=== PATIENT | female | born 1980 | race American Indian/Alaskan Native ===

== ENCOUNTER 2017-04-05 12:04 | Outpatient (CLI) | payer OTHER ==
--- NOTE | 2017-04-05 14:15 | Mammography Report ---
BILATERAL DIGITAL SCREENING MAMMOGRAM with CAD: 04/05/17 12:04:00 CLINICAL: Routine screening. COMPARISON:09/30/15 and 12/17/15 right mammogram FINDINGS: The breasts are heterogeneously dense, which may obscures small masses. The previously described right upper outer parenchyma laced symmetry is more prominent than on prior exams and requires additional imaging.No architectural distortion or suspicious calcifications.The left breast is negative. IMPRESSION: Right asymmetry requiring further workup. BI-RADS CATEGORY: 0 -- Additional Imaging Evaluation Required RECOMMENDATION: Recall for right , spot compression CC and MLO views and right breast ultrasound. ACR BI-RADS MAMMOGRAPHIC CODES: 0 = Needs additional imaging evaluation; 1 = Negative; 2 = Benign; 3 = Probably benign; 4 = Suspicious; 5 = Malignant; 6 = Known biopsy-proven malignancy COMMENT: 1. Dense breast tissue, i.e., adenosis, fibrocystic changes, etc., may obscure an underlying neoplasm. 2. Approximately 10% of cancers are not detected with mammography. 3. A negative mammography report should not delay biopsy if a clinically suspicious mass is present. COMMENT: Patient follow-up letters are generated via our [employer] application.
== END 2017-04-05 12:05 | disposition home or self-care (01) ==
LOC: SPVWC 12:04
PROVIDERS: ATTEND Family Medicine
DX: Z12.31 Encounter for screening mammogram for malignant neoplasm of breast (principal)
CPT/HCPCS: 77067; G0202

== ENCOUNTER 2017-04-13 08:29 | Outpatient (CLI) | payer OTHER ==
--- NOTE | 2017-04-13 09:16 | Mammography Report ---
Spot compression magnification view and sonogram of density upper outer right breast: Findings: There is persistence of density noted in Spot compression magnification view were no distinct mass or microcalcification is seen. On sonographic examination no cystic or solid masses identified. Impression: Benign findings. Annual followup recommended. BI-RADS CATEGORY: 2 = Benign ACR BI-RADS MAMMOGRAPHIC CODES: 0 = Needs additional imaging evaluation; 1 = Negative; 2 = Benign; 3 = Probably benign; 4 = Suspicious; 5 = Malignant; 6 = Known biopsy-proven malignancy COMMENT: 1. Dense breast tissue, i.e., adenosis, fibrocystic changes, etc., may obscure an underlying neoplasm. 2. Approximately 10% of cancers are not detected with mammography. 3. A negative mammography report should not delay biopsy if a clinically suspicious mass is present. COMMENT: Patient follow-up letters are generated in [employer].
== END 2017-04-13 08:30 | disposition home or self-care (01) ==
LOC: SPVWC 08:29
PROVIDERS: ATTEND Family Medicine
DX: R92.2 Inconclusive mammogram (principal)
CPT/HCPCS: 76642; G0206

== ENCOUNTER 2018-10-14 04:41 | Inpatient (IN) | payer OTHER ==
[2018-10-14] MEDS ORDERED: LACTATED RINGERS 2,000 ML ONE (05:51)
[2018-10-14] MEDS ORDERED: REGLAN IV ONE (06:12)
[2018-10-14] MEDS ORDERED: BICITRA PO ONE (06:12)
[2018-10-14] MEDS ORDERED: PEPCID IV ONE (06:12)
[2018-10-14 06:28] LABS: Basophils % (Auto) 0.3 % (0.0-1.8); Eosinophils % (Auto) 0.5 % (0.0-4.3); Hematocrit 39.4 % (30.3-42.9); Lymphocytes # (Auto) 1.4 K/mm3 (1.2-5.4); Lymphocytes % (Auto) 23.4 % (13.4-35.0); Mean Corpuscular HGB Conc 33 % (30-34); Mean Corpuscular Volume 90 fl (79-97); Monocytes # (Auto) 0.4 K/mm3 (0.0-0.8); Monocytes % (Auto) 6.9 % (0.0-7.3); Platelet Count 195 K/mm3 (140-440); Red Cell Distribution Width 15.8 % (13.2-15.2)
[2018-10-14] MEDS ORDERED: PITOCin/NS 20 UNIT/1000ML DRIP 20 UNITS/1,000 ML BAG IV SCH ×2 (07:00→11:00)
[2018-10-14] MEDS ORDERED: LACTATED RINGERS 1,000 ML IV SCH (07:00)
[2018-10-14] MEDS ORDERED: ANCEF/STERILE WATER 2 GM/20 ML 2 GM/20 ML SYRINGE IV NR (07:00)
--- NOTE | 2018-10-14 07:52 | History and Physical Report ---
History of Present Illness Date of examination: 10/14/18 Date of admission: 10/14/18 04:41 Chief complaint: Repeat C Section with BTL History of present illness: Pt is a 38yo BF EDC 10/17/18; EGA 39 4/7 weeks presents for a Repeat C Section with BTL. She received care at [facility] since 11 weeks and course has been unremarkable except for a previous C Section x 3. records are available and GBS is Positive. Past History Past Medical History: other (Crohn's disease) Past Surgical History: section (x3), other (hernia repair) ANALYTICS MANAGER History: herpes Family/Genetic History: diabetes, hypertension, cancer Social history: no significant social history, - Obstetrical History Expected Date of Delivery: 10/17/18 Actual Gestation: 39 Week(s) 4 Day(s) : 6 Medications and Allergies Allergies Allergy/AdvReac Type Severity Reaction Status Date / Time No Known Allergies Allergy Unverified 09/30/15 08:33 Active Meds: Active Medications Cefazolin Sodium (Ancef/Sterile Water 2 Gm/20 Ml) 2 gm in 20 mls @ 80 mls/hr IV PREOP NR; Protocol Stop: 10/14/18 23:55 Lactated Ringer's (Lactated Ringers) 1,000 mls @ 2,250 mls/hr IV PREOP CARITO Stop: 10/15/18 07:27 Oxytocin/Sodium Chloride (Pitocin/Ns 20 Unit/1000ml Drip) 20 units in 1,000 mls @ 0 mls/hr IV TITR CARITO Review of Systems All systems: negative - Vital Signs Vital signs: Vital Signs Temp Pulse Resp BP 98.3 F 77 16 124/79 10/14/18 06:29 10/14/18 06:29 10/14/18 06:29 10/14/18 06:29 Temp Pulse Resp BP Pulse Ox 98.3 F 77 16 124/79 10/14/18 06:29 10/14/18 06:29 10/14/18 06:29 10/14/18 06:29 - Physical Exam Breasts: Positive: deferred Cardiovascular: Regular rate Lungs: Positive: Clear to auscultation Abdomen: Positive: normal appearance Genitourinary (Female): Positive: normal external genitalia Uterus: Positive: enlarged Extremities: Positive: normal - Obstetrical FHR: category 1 Uterine Contraction Monitor Mode: External Uterine Contraction Pattern: Absent Results Result Diagrams: 10/14/18 06:10 Abnormal lab results 10/14/18 Range/Units 06:10 RDW 15.8 H (13.2-15.2) % All other labs normal. Assessment and Plan - Patient Problems (1) 39 weeks gestation of Onset Date: 10/14/18 Current Visit: Yes Status: Acute Plan to address problem: A: IUP @ 39 4/7 weeks Previous C Section x 3 Desires permanent sterilization AMA +GBS P: Admit to L&D for Repeat C Section with BTL (2) Previous section Onset Date: 10/14/18 Current Visit: Yes Status: Acute (3) AMA (advanced maternal age) multigravida 35+ Onset Date: 10/14/18 Current Visit: Yes Status: Acute Qualifiers: Trimester: third trimester Qualified Code(s): O09.523 - Supervision of elderly multigravida, third trimester (4) GBS (group B streptococcus) infection Onset Date: 10/14/18 Current Visit: Yes Status: Acute
[2018-10-14] MEDS ORDERED: ASTRAMORPH PF 10MG/10ML ONE (08:00)
[2018-10-14] MEDS ORDERED: ZOFRAN ONE (08:00)
[2018-10-14] MEDS ORDERED: WATER FOR IRRIG STERILE IR ONE (08:15)
[2018-10-14] MEDS ORDERED: NACL 0.9% IR ONE (08:15)
[2018-10-14] MEDS ORDERED: TORADOL ONE (08:32)
[2018-10-14] MEDS ORDERED: LACTATED RINGERS 1,000 ML ONE (08:34)
[2018-10-14] MEDS ORDERED: VERSED ONE (09:07)
--- NOTE | 2018-10-14 09:53 | Anesthesia Consultation ---
Anesthesia Consult and Med Hx - Airway Anesthetic Teeth Evaluation: Good ROM Head & Neck: Adequate Mental/Hyoid Distance: Adequate Mallampati Class: Class I Intubation Access Assessment: Good - Pulmonary Exam CTA: Yes - Pre-Operative Health Status ASA Pre-Surgery Classification: ASA2 Proposed Anesthetic Plan: Spinal - Pulmonary Hx Smoking: No Hx Asthma: No Hx Respiratory Symptoms: No COPD: No Hx Pneumonia: No - Cardiovascular System Hx Hypertension: No - Central Nervous System Hx Seizures: No Hx Psychiatric Problems: No - Endocrine Hx Renal Disease: No Hx End Stage Renal Disease: No Hx Hypothyroidism: No Hx Hyperthyroidism: No - Hematic Hx Anemia: No Hx Sickle Cell Disease: No - Other Systems Hx Alcohol Use: No
--- NOTE | 2018-10-14 09:54 | Anesthesia Day of Surgery ---
Anesthesia Day of Surgery - Day of Surgery Patient Examined: Yes Patient H&P Reviewed: Yes Patient is NPO: Yes Beta Blockers: No Cardiac Clearance: No Pulmonary Clearance: No Stepan's Test: N/A
--- NOTE | 2018-10-14 09:54 | Post Anesthesia Evaluation ---
- Post Anesthesia Evaluation Patient Participated: Yes Airway Patent: Yes Stable Respiratory Function: Yes Nausea/Vomiting: No Temp > 96.8F: Yes Pain Manageable: Yes Adequeate Hydration: Yes Anesthesia Complications: No Block Receding Appropriately: Yes Patient on Ventilator: No
[2018-10-14] MEDS ORDERED: PHENERGAN PO PRN (10:00)
[2018-10-14] MEDS ORDERED: NARCAN 0.4 MG/1 ML IV PRN ×2 (10:00→10:09)
[2018-10-14] MEDS ORDERED: SODIUM CHLORIDE FLUSH SYRINGE 10 ML IV PRN (10:00)
[2018-10-14] MEDS ORDERED: ZOFRAN IV PRN (10:00)
[2018-10-14] MEDS ORDERED: PHENERGAN PR PRN (10:00)
--- NOTE | 2018-10-14 10:02 | Operative Report ---
Operative Report Operative Report: Date of procedure: 10/14/2018 Pre-operative diagnosis: 1. Intrauterine at 39-4/7 weeks 2. Previ ous 3 3. Desires permanent sterilization 4. Advanced maternal age 5. Positive group B strep Post-operative diagnosis: Same with extensive lower uterine adhesions Procedure name(s): 1. Repeat low transverse section 2. Bilateral tubal ligation Surgeon: Harsha Montes MD Clod Puller: None Anesthesia: Spinal anesthesia by Dr. Cardenas EBL: 700 mls Findings: A 3665 g female infant Apgars 8 at 1 minute 9 at 5 minutes. Clear amniotic fluid. Uterus with uterine fibroids and multiple lower uterine adhesions. Normal tubes and ovaries bilaterally. Procedure: After the patient was prepped and draped in usual sterile fashion, and after satisfactory level of epidural anesthesia was obtained, the skin knife was used to make a transverse skin incision through the previous skin scars. The incision was excised down to layer of the fascia, which was nicked in the midline and extended laterally using the Bovie cautery. The rectus muscles were dissected off the rectus fascia both superiorly and inferiorly. The rectus bellies in the midline, and the peritoneum was entered under direct visualization. The peritoneal incision was extended superiorly and inferiorly. Extensive lower uterine adhesions were taken down by using sharp and blunt dissection. A bladder flap was created and the bladder blade was then placed. The uterus was scored in a curvilinear linear fashion, entered in the midline revealing clear amniotic fluid. The 's head was delivered onto the surgical field with the aid of a vacuum, and the oropharynx and nasopharynx were bulb suctioned. The rest of the infant's body was delivered, cord was doubly clamped and cut and the infant was handed to the waiting respiratory team. Cord blood was then obtained. The placenta was manually removed from the uterus, and the uterus removed from its normal anatomical position. After gentle uterine lavage, the incision was inspected and found to be without extensions. It was then closed in 2 layers using 0 Vicryl suture in a running interlocking fashion, the second layer imbricating the first. Several interrupted sutures of 0 Vicryl suture was used to pose a serosal layer. At this point, attention was turned to the tubal ligation. First the right fallopian tube was grasped using the [place], and after identifying the fimbriated end the right tube a Filshie clip was applied to the proximal portion of the tube. The same procedure was performed on the left fallopian tube. The left tube was grasped using a [place], after first identifying the fimbriated end of the left fallopian tube a Filshie clip was applied to the proximal portion of the tube. After good hemostasis was achieved, copious amounts or irrigation was performed, and the gutters were suctioned free of blood and blood clots. The Tisseel sealant was sprayed across the uterine incision. The uterus was then returned to its normal anatomical position, and after excellent hemostasis assured, the per itoneum was re-approximated using 3-0 Vicryl suture in a running interlocking fashion, and then the rectus muscles were re-approximated using 3-0 Vicryl suture in a [id number] configuration. The fascia was then re-approximated using 0 Vicryl suture in running interlocking fashion. The subcutaneous layer was made hemostatic using Bovie cautery, the Tisseel sealant was sprayed across the fascial incision and the skin edges re-approximated using 4-0 Vicryl suture in a sub-cuticular fashion. Patient tolerated the procedure well was transported to recovery in stable condition.
[2018-10-14] MEDS ORDERED: LANSINOH TP PRN (10:09)
[2018-10-14] MEDS ORDERED: SENOKOT PO PRN (10:09)
[2018-10-14] MEDS ORDERED: NORCO 5/325 PO PRN (10:09)
[2018-10-14] MEDS ORDERED: TYLENOL PO PRN (10:09)
[2018-10-14] MEDS ORDERED: TORADOL IV PRN (10:09)
[2018-10-14] MEDS ORDERED: MILK OF MAGNESIA PO PRN (10:09)
[2018-10-14] MEDS ORDERED: TUCKS PAD TP PRN (10:09)
[2018-10-14] MEDS ORDERED: MYLICON PO PRN (10:09)
[2018-10-14] MEDS ORDERED: D5LR 1,000 ML IV SCH (11:00)
[2018-10-14] MEDS ORDERED: SODIUM CHLORIDE FLUSH SYRINGE 10 ML IV NR (11:00)
[2018-10-14] MEDS: ANCEF/NS 1 GM/50 ML 1 GM/50 ML BAG IV SCH (17:41)
[2018-10-14] MEDS: PERCOCET 5/325 PO PRN (17:41)
[2018-10-15] MEDS: ANCEF/NS 1 GM/50 ML 1 GM/50 ML BAG IV SCH (01:18)
[2018-10-15] MEDS: PERCOCET 5/325 PO PRN ×3 (03:12→18:35)
[2018-10-15] MEDS ORDERED: BOOSTRIX IM ONE (06:00)
[2018-10-15] MEDS ORDERED: M-M-R II VACCINE SUB-Q ONE (06:00)
[2018-10-15] MEDS ORDERED: PRENATAL VITAMIN PO SCH (10:00)
[2018-10-15] MEDS ORDERED: FEOSOL PO SCH (10:00)
--- NOTE | 2018-10-15 10:40 | Progress Note ---
Assessment and Plan - Patient Problems (1) 39 weeks gestation of Onset Date: 10/14/18 Current Visit: Yes Status: Resolved (2) Previous section Onset Date: 10/14/18 Current Visit: Yes Status: Resolved (3) AMA (advanced maternal age) multigravida 35+ Onset Date: 10/14/18 Current Visit: Yes Status: Chronic Qualifiers: Trimester: third trimester Qualified Code(s): O09.523 - Supervision of elderly multigravida, third trimester (4) GBS (group B streptococcus) infection Onset Date: 10/14/18 Current Visit: Yes Status: Resolved (5) Status post Onset Date: 10/15/18 Current Visit: Yes Status: Resolved Plan to address problem: A: S/P Repeat C Section with BTL - POD #1 Asymptomatic anemia - stable P: Continue RPOC Anticipate discharge in 24-48hrs (6) Acute blood loss anemia Onset Date: 10/15/18 Current Visit: Yes Status: Resolved Subjective - Subjective Date of service: 10/15/18 Principal diagnosis: s/p Repeat C Section with BTL - POD #1 Interval history: Pt is feeling well without complaints. Bleeding improved. She is tolerating a liquid diet without nausea or vomiting, ambulating and voiding without difficulty. Patient reports: appetite normal, voiding normally, pain well controlled, flatus, ambulating normally, no dizzy ambulation, no nauseated [place]: doing well, nursing well, bottle feeding Objective - Vital Signs Latest vital signs: Vital Signs Temp Pulse Resp BP BP Pulse Ox 10/15/18 07:23 98.2 F 89 18 98/69 10/15/18 04:25 98.3 F 82 18 99/65 98 10/15/18 01:46 98.6 F 94 H 20 102/63 97 10/14/18 22:06 98.3 F 92 H 20 98/61 98 10/14/18 17:23 99.2 F 89 18 97/62 98 10/14/18 11:05 98.7 F 76 20 99/66 Intake and Output 10/14/18 10/15/18 10/15/18 22:59 06:59 14:59 Intake Total 410 120 Output Total 250 400 Balance 160 -280 Intake: IV 50 ANCEF/NS 1 GM/50 ML 1 gm 50 In 50 ml @ 100 mls/hr IV Q8H CARITO Rx#:[id number] Oral 120 Intake, Free Water 360 Output: Urine 250 400 Indwelling Catheter 250 Void 400 Other: Total, Intake Amount 120 Total, Output Amount 250 200 - Exam Abdomen: Present: normal appearance, soft Uterus: Present: normal, firm, fundal height below umbilicus Extremities: Present: normal Incision: Present: normal, dry, intact, dressed - Labs Labs: Abnormal lab results 10/14/18 Range/Units 21:58 Hgb 9.0 L D (10.1-14.3) gm/dl Hct 27.0 L D (30.3-42.9) % Laboratory Tests 10/14/18 10/14/18 10/14/18 06:10 06:10 21:58 WBC 6.0 RBC 4.40 Hgb 13.0 9.0 L D Hct 39.4 27.0 L D MCV 90 MCH 30 MCHC 33 RDW 15.8 H Plt Count 195 Lymph % (Auto) 23.4 [place] % (Auto) 6.9 Eos % (Auto) 0.5 Baso % (Auto) 0.3 Lymph # 1.4 [place] # 0.4 Eos # 0.0 Baso # 0.0 Seg Neutrophils % 68.9 Seg Neutrophils # 4.1 Blood Type A POSITIVE Antibody Screen Negative
[2018-10-16] MEDS: IBUPROFEN PO PRN ×2 (01:10→10:24)
--- NOTE | 2018-10-16 12:13 | Progress Note ---
Assessment and Plan - Patient Problems (1) 39 weeks gestation of Onset Date: 10/14/18 Current Visit: Yes Status: Resolved (2) Previous section Onset Date: 10/14/18 Current Visit: Yes Status: Resolved (3) AMA (advanced maternal age) multigravida 35+ Onset Date: 10/14/18 Current Visit: Yes Status: Chronic Qualifiers: Trimester: third trimester Qualified Code(s): O09.523 - Supervision of elderly multigravida, third trimester (4) GBS (group B streptococcus) infection Onset Date: 10/14/18 Current Visit: Yes Status: Resolved (5) Status post Onset Date: 10/15/18 Current Visit: Yes Status: Resolved Plan to address problem: A: S/P Repeat C Section with BTL - POD #2 Asymptomatic anemia - stable P: May go home today. (6) Acute blood loss anemia Onset Date: 10/15/18 Current Visit: Yes Status: Resolved Subjective - Subjective Date of service: 10/16/18 Principal diagnosis: s/p Repeat C Section with BTL - POD #2 Interval history: Pt is feeling well without complaints. She is tolerating a reg diet without nausea or vomiting, ambulating and voiding without difficulty. Wants to go home today. Patient reports: appetite normal, voiding normally, pain well controlled, flatus, ambulating normally, no dizzy ambulation, no nauseated [place]: doing well, nursing well, bottle feeding Objective - Vital Signs Latest vital signs: Vital Signs Temp Pulse Resp BP BP Pulse Ox 10/16/18 10:24 20 10/16/18 08:27 99.0 F 108 H 20 115/79 98 10/15/18 15:40 98.2 F 93 H 18 109/73 Intake and Output 10/15/18 10/16/18 10/16/18 22:59 06:59 14:59 Intake Total 440 Balance 440 Intake: Oral 440 Other: Total, Intake Amount 440 - Exam Cardiovascular: Present: Regular rate Lungs: Present: Clear to auscultation Abdomen: Present: normal appearance, soft Uterus: Present: normal, firm, fundal height below umbilicus Extremities: Present: normal Incision: Present: normal, dry, intact
--- NOTE | 2018-10-16 12:13 | Discharge Summary ---
Providers - Providers Date of Admission: 10/14/18 04:41 Date of discharge: 10/16/18 Attending physician: RUTH ESCALANTE Primary care physician: RUTH ESCALANTE Hospitalization Reason for admission: section, IUP at term Delivery: Procedure: section, bilateral tubal ligation, repeat low transverse Episiotomy: none Laceration: none Incision: normal, dry, intact Other procedures: tubal ligation complications: none Discharge diagnosis: IUP at term delivered [place] baby: female Hospital course: Pt is a 38yo BF EDC 10/17/18; EGA 39 4/7 weeks who presented for a Repeat C Section with BTL. She received care at [facility] since 11 weeks and course had been unremarkable except for a previous C Section x 3. She underwent an uncomplicated Repeat C Section with BTL and tolerated the procedure well. By POD #2 she was tolerating a reg diet without nausea or vomiting, ambulating and voiding without difficulty, and was therefore discharged to home on POD #2 in stable condition. Condition at discharge: Good Disposition: DC-01 TO HOME OR SELFCARE - Discharge Diagnoses (1) 39 weeks gestation of Status: Resolved (2) Previous section Status: Resolved (3) AMA (advanced maternal age) multigravida 35+ Status: Chronic Qualifiers: Trimester: third trimester Qualified Code(s): O09.523 - Supervision of elderly multigravida, third trimester (4) GBS (group B streptococcus) infection Status: Resolved (5) Status post Status: Resolved (6) Acute blood loss anemia Status: Resolved Plan - Discharge Medications Prescriptions: Ferrous Sulfate [Feosol 325 MG tab] 325 mg PO BID #60 tablet HYDROcodone/APAP 5-325 [[place] 5-325 mg TAB] 1 each PO Q6HR PRN #30 tablet PRN Reason: Pain, Moderate (4-6) Ibuprofen [Motrin 800 MG tab] 800 mg PO Q6H PRN #30 tablet PRN Reason: Pain, Mild (1-3) Vit-Fe Fumar-FA [ Vitamin] 1 each PO QDAY #30 tablet - Provider Discharge Summary Activity: routine, no sex for 6 weeks, no heavy lifting 4 weeks, no strenuous exercise Diet: routine Instructions: routine Additional instructions: [] Smoking cessation referral if applicable(refer to patient education folder for contact #) [] Refer to [facility] Booklet Call your doctor immediately for: * Fever > 100.5 * Heavy vaginal bleeding ( >1 pad per hour) * Severe persistent headache * Shortness of breath * Reddened, hot, painful area to leg or breast * Drainage or odor from incision. * Keep incision clean and dry at all times and follow doctor's instructions regarding bathing/showering - Follow up plan Follow up: RUTH ESCALANTE MD [Primary Care Provider] - 14 Days CEDRICK [place] CNM [Advanced Practice Nurse] - 14 Days
[2018-10-16 16:44] VITALS: BP 121/79
== END 2018-10-16 15:00 | disposition home or self-care (01) | DRG 784 ==
LOC: APU 04:41 → OB 11:15
PROVIDERS: ADMIT Obstetrics & Gynecology; ATTEND Obstetrics & Gynecology
PROC: 10D00Z1 Extraction of Products of Conception, Low, Open Approach (ICD-10-PCS; principal; 2018-10-14)
PROC: 0UL70CZ Occlusion of Bilateral Fallopian Tubes with Extraluminal Device, Open Approach (ICD-10-PCS; 2018-10-14)
PROC: 3E0234Z Introduction of Serum, Toxoid and Vaccine into Muscle, Percutaneous Approach (ICD-10-PCS; 2018-10-15)
DX: O34.211 Maternal care for low transverse scar from previous cesarean delivery (principal); K50.90 Crohn's disease, unspecified, without complications; O98.82 Other maternal infectious and parasitic diseases complicating childbirth; D62 Acute posthemorrhagic anemia; O99.62 Diseases of the digestive system complicating childbirth; B95.1 Streptococcus, group B, as the cause of diseases classified elsewhere; O90.81 Anemia of the puerperium; Z80.9 Family history of malignant neoplasm, unspecified; Z83.3 Family history of diabetes mellitus; Z82.49 Family history of ischemic heart disease and other diseases of the circulatory system; Z23 Encounter for immunization; Z37.0 Single live birth; Z3A.39 39 weeks gestation of pregnancy
CPT/HCPCS: 36415; 85014; 85018; 85025; 86850; 86900; 86901; G0378; A6250; C9250; J0690; J1885; J2250; J2274; J2405; J2590; J2765; J7120; J7121